=== PATIENT | female | born 1985 | race Caucasian/White ===

== ENCOUNTER → 2017-12-08 14:51 | Outpatient (REF) | payer BC, SELFPAY ==
[2017-12-11 16:04] LABS: Amphetamine/Metha Screen,Urine Negative ng/mL (<1000); Barbiturates Screen,Urine Negative ng/mL (<200); Benzodiazepines Screen,Urine Negative ng/mL (200); Cannabinoid Screen,Urine Negative ng/mL (<50); Cocaine Screen,Urine Negative ng/g (<300); Methadone Screen,Urine Negative ng/mL (<300); Opiate Screen,Urine Negative ng/mL (<300); Phencyclidine Screen,Urine Negative ng/mL (<25)
== END ==
LOC: LAB 14:51
PROVIDERS: Visit Provider Nurse Practitioner Family
DX: R68.89 Other general symptoms and signs (principal)
CPT/HCPCS: 80305

== ENCOUNTER → 2017-12-15 08:39 | Outpatient (CLI) | payer BC, SELFPAY ==
[2017-12-15 09:30] LABS: Basophils % 0.8 % (0.1-2.0); Eosinophils % 0.9 % (0.1-12.0); Hematocrit 44.9 % (37.0-47.0); Hemoglobin 14.6 g/dL (12.2-16.2); Lymphocytes % 35.6 K/mm3 (10-50); Mean Corpuscular HGB Conc 32.5 g/dL (31.8-35.4); Mean Corpuscular Hemoglobin 27.9 pg (27.0-31.2); Mean Corpuscular Volume 86.1 fl (81-99); Mean Platelet Volume 9.3 fl (7.4-10.4); Monocytes # 0.2 K/mm3 (0.1-1.0); Monocytes % 6.4 % (1.7-9.3); Neutrophils # 1.6 K/mm3 (1.8-7.8); Neutrophils % 56.3 % (37.0-80.0); Platelet Count 151 K/mm3 (142-424); Red Blood Count 5.22 M/mm3 (4.20-5.40); Red Cell Distribution Width 13.3 % (11.5-17.5); White Blood Count 2.9 K/mm3 (4.8-10.8)
[2017-12-15 09:48] LABS: Alanine Aminotransferase 48 U/L (12-78); Albumin Level 3.8 gm/dL (3.4-5.0); Albumin/Globulin Ratio 1.2 (1.1-1.8); Alkaline Phosphatase 69 U/L (46-116); Anion Gap 11.2 mEq/L (5-15); Aspartate Amino Transferase 24 U/L (15-37); Bilirubin,Total 0.3 mg/dL (0.2-1.0); Blood Urea Nitrogen 7 mg/dL (7-18); Calcium 8.8 mg/dL (8.5-10.1); Carbon Dioxide 27 mmol/L (21.0-32.0); Chloride 106 mmol/L (98-107); Chol/HDL Ratio 4.5 (1-3.5); Cholesterol 135 mg/dL (140-200); Creatinine,Serum 0.92 mg/dL (0.55-1.02); Estimated Glomerular Filt Rate 71 ml/min (>60); Free T4 (Free Thyroxine) 0.97 ng/dl (0.76-1.46); GFR (African American) 86 ML/MIN (>60); Globulin 3.3 gm/dl (1.3-3.2); Glucose 109 mg/dL (74-106); HDL Cholesterol 30 mg/dL (29-89); LDL Cholesterol 69 mg/dL (0-130); Potassium 4.2 mmoL/L (3.5-5.1); Sodium 140 mmol/L (136-145); Thyroid Stimulating Hormone 1.17 uIU/ml (0.358-3.740); Total Protein,Serum 7.1 gm/dL (6.4-8.2); Triglycerides 180 mg/dL (30-200); VLDL Cholesterol 36 mg/dL (0-40)
== END ==
PROVIDERS: PCP Emergency Medicine; Visit Provider Nurse Practitioner Family
DX: R53.83 Other fatigue (principal)
CPT/HCPCS: 36415; 80053; 80061; 84439; 84443; 85025

== ENCOUNTER → 2017-12-19 09:38 | Outpatient (CLI) | payer BC, SELFPAY ==
[2017-12-20 10:31] LABS: HIV Screen 4th Generation wRfx Non Reactive (Non Reactive)
[2017-12-21 09:39] LABS: Peripheral Smear Review Scanned Result
== END ==
PROVIDERS: Visit Provider Nurse Practitioner Family
DX: D72.819 Decreased white blood cell count, unspecified (principal)
CPT/HCPCS: 36415; 86703; G0432

== ENCOUNTER → 2018-05-11 12:32 | Outpatient (CLI) | payer BC, SELFPAY ==
--- NOTE | 2018-05-11 12:37 | XR_ITS ---
XR knee LT 3V HISTORY: ITS.REASON: knee pain ORDERING PHYSICIAN: Oscar Joshi PATIENT AGE: 32 years COMPARISON: None FINDINGS: No fracture or dislocation. No lytic or blastic change. Normal mineralization. No significant arthritic changes evident. No other significant findings IMPRESSION: Negative Knee
== END ==
PROVIDERS: Visit Provider Nurse Practitioner Family
DX: M25.562 Pain in left knee (principal)
CPT/HCPCS: 73562

== ENCOUNTER → 2018-06-08 10:48 | Outpatient (CLI) | payer BC, SELFPAY ==
--- NOTE | 2018-06-08 10:50 | MR_ITS ---
MR knee LT wo con Ordering Physician: Emiliano Kramer Patient Age: 32 years: Female HISTORY: ITS.REASON: LEFT KNEE PAIN Knee pain and swelling. Feels like something is catching . Anterior knee pain. When on feet for long period of time a developed posterior knee pain . Pain with bending and extending knee TECHNIQUE: Multiplanar multisequence imaging on 1.5 T MR COMPARISON : FINDINGS large volume knee. Large patient. The ACL and PCL are intact. The medial and lateral collateral ligaments appear intact.. Slight undulating patellar tendon appears slightly lax with the knee in full extension but I believe intact. Upper normal signal superiorly the patellar tendon may be exaggerated by magic angle. There is some scant edema overlying the patellar tendon. This is similar to the quadriceps tendon with upper normal signal near its insertion but I believe intact. Patellofemoral joint. Intact but noting slight lateral tilt of patella. The cartilage seems fairly well-maintained at the lateral facet of patella.Perhaps slightly thinned at medial facet of patella There is a small joint effusion. Medial compartment intact. Medial meniscus intact. Cartilage fairly well maintained. Minimal early sharpening is scant early marginal osteophytes margin medial compartment. Lateral compartment. Cartilage seems to be fairly well-maintained here as well with some borderline thinning anteriorly femoral condyle. The lateral meniscus appears intact overall no definitive tear. There is some minimal ill-defined signal at the body of lateral meniscus on coronal views which could reflect some fraying of free margin, but unimpressive. The sagittal images of the meniscus appear intact No osseous abnormalities. No obvious loose body. IMPRESSION: ... Small joint effusion. No prominent findings. . Only subtle lateral position and tilt tilt of patella at patellofemoral very minor significance. Suggestion Mild chondral thinning medial facet of patella Lateral meniscus. No definitive tear with slightly ill-defined free margin on coronal images could reflect some minimal fraying, fibrillation but unimpressive overall. Cruciate and collateral ligaments intact . q
== END ==
PROVIDERS: Family Provider Nurse Practitioner Family; PCP Emergency Medicine; Visit Provider Orthopaedic Surgery Adult Reconstructive Orthopaedic Surgery
DX: M25.562 Pain in left knee (principal)
CPT/HCPCS: 73721

== ENCOUNTER → 2018-08-17 13:14 | Outpatient (CLI) | payer BC, SELFPAY ==
--- NOTE | 2018-08-17 13:15 | US_ITS ---
US transvaginal HISTORY: Dysfunctional uterine bleeding, right-sided pelvic pain ITS.REASON: dub ORDERING PHYSICIAN: Thierno Snyder MD PATIENT AGE: 33 years Comparison: None FINDINGS: The uterus is 10 x 5 x 6 cm with a combined endometrial thickness of 12 mm. The uterus is anteverted. No uterine mass evident. There is an IUD present in the endometrium in the body and fundal area. The right ovary is 3 x 2.6 cm and contains a 1.3 cm cyst. The left ovary is 3 x 2 cm and contains a 2 cm cyst. No cul-de-sac fluid is evident. IMPRESSION: 1. IUD in place with mildly thickened endometrium 2. 2 cm left ovarian cyst, 1.3 cm right ovarian cyst
== END ==
PROVIDERS: PCP Emergency Medicine; Visit Provider Obstetrics & Gynecology
DX: N93.8 Other specified abnormal uterine and vaginal bleeding (principal)
CPT/HCPCS: 76830

== ENCOUNTER → 2018-09-12 15:32 | Outpatient (CLI) | payer BC, SELFPAY ==
--- NOTE | 2018-09-12 15:33 | XR_ITS ---
XR chest 2V HISTORY: Cough, smoker, left-sided rib pain ITS.REASON: Cough, fever, smoker ORDERING PHYSICIAN: WELLINGTON Guerra PATIENT AGE: 33 years COMPARISON: 05/21/2015 FINDINGS: There is mild cardiomegaly without failure. No lobar consolidation or collapse is evident. Right upper lobe nodule is once again noted at 11 mm unchanged consistent with a granuloma. The lungs are clear. No acute bony anomaly. IMPRESSION: No change with no acute finding. Cardiomegaly. No change right upper lobe nodule.
== END ==
PROVIDERS: PCP Physician Assistant; Visit Provider Physician Assistant
DX: R05 Cough (principal)
CPT/HCPCS: 71046

== ENCOUNTER → 2018-09-20 10:26 | Outpatient (CLI) | payer BC, SELFPAY | PROVIDERS: PCP Physician Assistant; Visit Provider Physician Assistant | DX: R05 Cough (principal) | CPT/HCPCS: 94060; 94640 ==

== ENCOUNTER → 2018-09-24 07:48 | Outpatient (CLI) | payer BC, SELFPAY | PROVIDERS: PCP Physician Assistant; Visit Provider Physician Assistant | DX: I51.7 Cardiomegaly (principal) | CPT/HCPCS: 93306 ==

== ENCOUNTER → 2018-11-01 14:12 | Outpatient (CLI) | payer BC, SELFPAY ==
--- NOTE | 2018-11-01 14:14 | US_ITS ---
US transvaginal HISTORY: Follow-up ovarian cyst ITS.REASON: PELVIC PAIN ORDERING PHYSICIAN: Thierno Snyder MD PATIENT AGE: 33 years Comparison: 08/17/2018 FINDINGS: Uterus measures 9 x 4 x 6 cm with combined endometrial thickness of 11 mm. There is an IUD in place with artifact from the IUD. No obvious uterine mass. The left ovary is 3.3 x 2.4 cm and has an unremarkable appearance. The right ovary is 5 x 3 x 4 cm and contains a 3 cm cyst. Previously there was a 13 mm right ovarian cyst and a 2 cm left ovarian cyst. There is a small amount fluid in cul-de-sac. IMPRESSION: 1. IUD in place with endometrial thickness upper limits of normal 2. Mildly enlarged right ovary with a 3 cm right ovarian cyst and a small amount fluid in cul-de-sac
== END ==
PROVIDERS: PCP Emergency Medicine; Visit Provider Obstetrics & Gynecology
DX: R10.2 Pelvic and perineal pain (principal)
CPT/HCPCS: 76830

== ENCOUNTER → 2018-11-15 14:49 | Outpatient (CLI) | payer BC, SELFPAY ==
[2018-11-15 15:16] LABS: Basophils # 0.1 K/mm3 (0-0.2); Basophils % 0.6 % (0.1-2.0); Eosinophils # 0.2 K/mm3 (0.0-0.4); Eosinophils % 1.8 % (0.1-12.0); Hematocrit 39.8 % (37.0-47.0); Hemoglobin 13.1 g/dL (12.2-16.2); Lymphocytes # 2.5 K/mm3 (0.7-4.5); Lymphocytes % 28.5 % (10-50); Mean Corpuscular HGB Conc 32.9 g/dL (31.8-35.4); Mean Corpuscular Hemoglobin 27.7 pg (27.0-31.2); Mean Corpuscular Volume 84.1 fl (81-99); Mean Platelet Volume 8.7 fl (7.4-10.4); Monocytes # 0.4 K/mm3 (0.1-1.0); Monocytes % 4.1 % (1.7-9.3); Neutrophils # 5.7 K/mm3 (1.8-7.8); Platelet Count 201 K/mm3 (142-424); Red Blood Count 4.74 M/mm3 (4.20-5.40); Red Cell Distribution Width 13.6 % (11.5-17.5); White Blood Count 8.8 K/mm3 (4.8-10.8)
[2018-11-15 16:22] LABS: HCG Qualitative, Serum Negative (Negative)
[2018-11-15 17:14] LABS: Alanine Aminotransferase 26 U/L (12-78); Albumin Level 3.7 gm/dL (3.4-5.0); Albumin/Globulin Ratio 1.2 (1.1-1.8); Alkaline Phosphatase 75 U/L (46-116); Anion Gap 15.4 mEq/L (5-15); Aspartate Amino Transferase 10 U/L (15-37); Bilirubin,Total 0.4 mg/dL (0.2-1.0); Blood Urea Nitrogen 12 mg/dL (7-18); Calcium 8.7 mg/dL (8.5-10.1); Carbon Dioxide 26 mmol/L (21.0-32.0); Chloride 104 mmol/L (98-107); Estimated Glomerular Filt Rate 96 ml/min (>60); GFR (African American) 117 ML/MIN (>60); Globulin 3.1 gm/dl (1.3-3.2); Glucose 95 mg/dL (74-106); Potassium 4.4 mmoL/L (3.5-5.1); Sodium 141 mmol/L (136-145); Total Protein,Serum 6.8 gm/dL (6.4-8.2)
[2018-11-19 08:36] LABS: Cancer Antigen (CA) 125 11.3 U/mL (0.0-38.1)
== END ==
PROVIDERS: Visit Provider Obstetrics & Gynecology
DX: Z01.818 Encounter for other preprocedural examination (principal); N93.8 Other specified abnormal uterine and vaginal bleeding; N94.9 Unspecified condition associated with female genital organs and menstrual cycle; R10.2 Pelvic and perineal pain
CPT/HCPCS: 36415; 80053; 84703; 85025; 86316

== ENCOUNTER → 2018-11-16 08:58 | Outpatient (CLI) | payer BC, SELFPAY ==
[2018-11-16 09:02] LABS: Microscopic, Urine URINE MICROSCOPIC (MICROSCOPIC)
[2018-11-16 09:09] LABS: Appearance,Urine SL CLOUDY (Clear); Bilirubin,Urine Negative (Negative); Blood, Urine TRACE-I (Negative); Color,Urine YELLOW (Yellow); Glucose,Urine (UA) Negative (Negative); Ketones,Urine Negative (Negative); Leukocyte Esterase,Urine Negative (Negative); Nitrate,Urine Negative (Negative); PH,Urine 6.5 (5.0-8.5); Protein,Urine Negative (Negative); Specific Gravity, Urine 1.025 (1.005-1.030); Urobilinogen,Urine 0.2 EU/dl (0.2)
[2018-11-16 09:24] LABS: Bacteria,Urine 2+ /lpf; Mucus,Urine 2+ /lpf; RBC,Urine Occasional #/hpf (0-3); WBC,Urine Occasional #/hpf (0-3)
== END ==
PROVIDERS: Visit Provider Obstetrics & Gynecology
DX: Z01.818 Encounter for other preprocedural examination (principal); N93.8 Other specified abnormal uterine and vaginal bleeding; N94.9 Unspecified condition associated with female genital organs and menstrual cycle; R10.2 Pelvic and perineal pain
CPT/HCPCS: 81001; 87086; 87088; 87186

== ENCOUNTER → 2018-12-14 10:55 | Outpatient (CLI) | payer BC, SELFPAY ==
[2018-12-14 11:31] LABS: Basophils # 0.1 K/mm3 (0-0.2); Basophils % 0.8 % (0.1-2.0); Eosinophils # 0.1 K/mm3 (0.0-0.4); Eosinophils % 1.2 % (0.1-12.0); Hematocrit 39.3 % (37.0-47.0); Lymphocytes # 1.8 K/mm3 (0.7-4.5); Lymphocytes % 28.6 % (10-50); Mean Corpuscular HGB Conc 33.2 g/dL (31.8-35.4); Mean Corpuscular Hemoglobin 27.8 pg (27.0-31.2); Mean Corpuscular Volume 83.8 fl (81-99); Monocytes # 0.3 K/mm3 (0.1-1.0); Monocytes % 4.3 % (1.7-9.3); Neutrophils # 4.2 K/mm3 (1.8-7.8); Neutrophils % 65.1 % (37.0-80.0); Platelet Count 183 K/mm3 (142-424); Red Blood Count 4.69 M/mm3 (4.20-5.40); Red Cell Distribution Width 13.4 % (11.5-17.5); White Blood Count 6.4 K/mm3 (4.8-10.8)
[2018-12-14 12:43] LABS: Alanine Aminotransferase 29 U/L (12-78); Albumin Level 3.7 gm/dL (3.4-5.0); Albumin/Globulin Ratio 1.2 (1.1-1.8); Alkaline Phosphatase 71 U/L (46-116); Anion Gap 13.2 mEq/L (5-15); Aspartate Amino Transferase 14 U/L (15-37); Bilirubin,Total 0.6 mg/dL (0.2-1.0); Blood Urea Nitrogen 9 mg/dL (7-18); Carbon Dioxide 27 mmol/L (21.0-32.0); Chloride 105 mmol/L (98-107); Chol/HDL Ratio 3.9 (1-3.5); Cholesterol 166 mg/dL (140-200); Creatinine,Serum 0.68 mg/dL (0.55-1.02); Estimated Glomerular Filt Rate 100 ml/min (>60); Ferritin 31 ng/mL (8-388); GFR (African American) 121 ML/MIN (>60); Glucose 93 mg/dL (74-106); HDL Cholesterol 43 mg/dL (29-89); Iron 63 ug/dl (28-170); LDL Cholesterol 103 mg/dL (0-130); Magnesium 2.3 mg/dL (1.4-2.2); Phosphorous 3.1 mg/dL (2.4-4.9); Potassium 4.2 mmoL/L (3.5-5.1); Sodium 141 mmol/L (136-145); Thyroid Stimulating Hormone 1.07 uIU/ml (0.358-3.740); Total Protein,Serum 6.7 gm/dL (6.4-8.2); Triglycerides 98 mg/dL (30-200); VLDL Cholesterol 20 mg/dL (0-40)
[2018-12-14 12:55] LABS: Hemoglobin A1C 5.3 % (0.0-7.0)
[2018-12-15 10:16] LABS: Folate 15.9 ng/mL (>3.0)
[2018-12-15 10:17] LABS: Prealbumin 21 mg/dL (14-35); Vitamin D 25 Hydroxy 15.3 ng/mL (30.0-100.0)
[2018-12-17 07:59] LABS: Parathyroid Hormone Intact 58 pg/mL (15-65)
[2018-12-18 03:11] LABS: Vitamin A 40.8 ug/dL (18.9-57.3); Vitamin B1 98.8 nmol/L (66.5-200.0)
[2018-12-18 03:12] LABS: Vitamin E Alpha Tocopherol 9.1 mg/L (5.9-19.4); Vitamin E Gamma Tocopherol 2.7 mg/L (0.7-4.9)
[2018-12-18 15:24] LABS: Methylmalonic Acid 142 nmol/L (0-378)
[2018-12-18 16:10] LABS: Cotinine None Detected (.); Nicotine None Detected (.)
== END ==
PROVIDERS: Visit Provider Physician Assistant
DX: I10 Essential (primary) hypertension (principal); K75.81 Nonalcoholic steatohepatitis (NASH); E66.01 Morbid (severe) obesity due to excess calories
CPT/HCPCS: 36415; 80053; 80061; 80323; 82131; 82652; 82728; 82746; 83036; 83540; 83735; 83970; 84100; 84134; 84425; 84443; 84446; 84590; 85025; G0480

== ENCOUNTER → 2019-12-13 10:31 | Outpatient (CLI) | payer BC, SELFPAY ==
[2019-12-14 20:44] LABS: Vitamin B12 578 pg/mL (232-1245)
== END ==
PROVIDERS: Visit Provider Physician Assistant
DX: R53.83 Other fatigue (principal)
CPT/HCPCS: 36415; 82607

== ENCOUNTER 2021-05-15 17:21 | Emergency (ER) | payer BC, SELFPAY ==
[2021-05-15 17:23] VITALS: BP 122/74; PULSE 88; RESP 20; TEMP 38; O2SAT 99; BMI 36.6
--- NOTE | 2021-05-15 18:35 | HMH.EDUTC ---
[facility] Disposition Clinical Impression: Bronchitis Sinusitis Qualifiers: Sinusitis location: maxillary Chronicity: acute Recurrence: non-recurrent Qualified Code(s): J01.00 - Acute maxillary sinusitis, unspecified Disposition: Home, Self-Care Condition on Discharge: Good Instructions: DI for Sinusitis Additional Instructions: You have been tested for COVID19. Please isolate yourself as if you are positive until test results received. Prescriptions: Albuterol Sulfate [Albuterol Sulfate Hfa] 2 puffs IH Q4HP PRN 30 Days #1 hfa.aer.ad PRN Reason: Shortness Of Breath Transmission Status: [facility] predniSONE [Prednisone 20mg Tab] 20 mg PO BID 5 Days #10 tab Transmission Status: Pending to [facility] Azithromycin [Z-Oh 250mg Tab] 250 mg PO DIRECTED #6 tab Transmission Status: Pending to [facility] Referrals: Adam nAtunez MD [Primary Care Provider] - Time of Disposition: 19:12 Medical Decision Making - Jorge Luis Inquiry Pt receiving controlled substance: No Vital Signs: 05/15/21 17:23 Temperature 100.4 F H Temperature Source Oral Pulse Rate [Left Radial] 88 Respiratory Rate 20 Blood Pressure [Right Arm] 122/74 Blood Pressure Mean [Right Arm] 90 Blood Pressure Source [Right Arm] Automatic Cuff Blood Pressure Position [Right Arm] Sitting 02 Sat by Pulse Oximetry 99 Oxygen Delivery Method Room Air - Lab Data Lab Results 05/15/21 18:36: Strep Scn Rapid Clinic Negative Orders (Tests/Meds): ORDERS Category Date Time Status Chest XR 2 view (NOT portable) [XR chest 2V] Stat Exams 05/15/21 18:41 Taken Covid-19 Nasal PCR ([facility]) Routine Lab 05/15/21 18:30 Received Strep Screen Confirmation Stat Micro 05/15/21 18:36 [facility] - General Stated complaint: Cough,SOBmCongestion Time Seen by Provider: 05/15/21 18:35 - History of Present Illness Provider Complaint: Nasal congestion, sore throat, runny nose, cough, shortness of breath, low grade fever X 4 days. Body aches, chills. No vomiting or diarrhea. Onset (ago): day(s) (4) Location: chest Relieving factors: none Exacerbating factors: none Associated symptoms: cough, fever/chills, malaise Treatments prior to arrival: none - Related Data Home Medications Medication Instructions Recorded Confirmed linaclotide 72 mcg capsule 72 mcg PO DAILY cap 05/11/18 11/15/19 omeprazole 20 mg capsule,delayed 40 mg PO DAILY cap 05/11/18 11/15/19 release copper 380 square mm intrauterine 1 % INTRAUTERI DIRECTED each 07/31/18 11/15/19 device Fluticasone/Vilanterol [Breo 1 inh INHALATION Q24H 11/19/18 11/15/19 Ellipta] phentermine 37.5 mg tablet 37.5 mg PO DAILY 05/25/20 05/25/20 Previous Rx's Medication Instructions Recorded benzoyl peroxide 2.5 % topical 1 applic TOPICAL DAILY PRN #21 g 11/16/18 cream cholecalciferol (vitamin D3) 125 5,000 unit PO DAILY #30 cap 12/18/18 mcg (5,000 unit) capsule ergocalciferol (vitamin D2) 1,250 50,000 unit PO QWEEK #4 cap 12/18/18 mcg (50,000 unit) capsule cetirizine 10 mg tablet 10 mg PO DAILY #30 tab 06/20/19 triamcinolone acetonide 0.1 % 1 applic TOPICAL QID #30 g 08/06/19 topical cream valacyclovir 1 gram tablet 1,000 mg PO TID #21 tab 08/06/19 hydroxyzine pamoate 25 mg capsule 25 mg PO TID PRN #90 cap 10/21/20 buspirone 5 mg tablet 5 mg PO BID PRN #180 tab 05/14/21 trazodone 50 mg tablet 50 mg PO QHS PRN #90 tab 05/14/21 venlafaxine 150 mg 150 mg PO DAILY #90 cap 05/14/21 capsule,extended release 24 hr Albuterol Sulfate [Albuterol 2 puffs IH Q4HP PRN 30 Days #1 05/15/21 Sulfate Hfa] hfa.aer.ad Azithromycin [Z-Oh 250mg Tab] 250 mg PO DIRECTED #6 tab 05/15/21 predniSONE [Prednisone 20mg 20 mg PO BID 5 Days #10 tab 05/15/21 Tab] Allergies Allergy/AdvReac Type Severity Reaction Status Date / Time No Known Allergies Allergy Verified 05/14/21 10:25 [facility] History - Hepatitis A Screen Atte
[2021-05-15 18:38] LABS: UTC Strep Screen (Rapid) Negative (Negative)
--- NOTE | 2021-05-15 18:41 | XR_ITS ---
PROCEDURE INFORMATION: Exam: XR Chest Exam date and time: 05/15/2021 6:41 PM Age: 35 years old Clinical indication: Cough; Additional info: Cough/congestion TECHNIQUE: Imaging protocol: XR of the chest. Views: 2 views. COMPARISON: CR CXR2V XR chest 2V 09/12/2018 3:39 PM FINDINGS: Lungs: Calcified granuloma within the periphery of the right upper lobe. Pleural spaces: Unremarkable. No pleural effusion. No pneumothorax. Heart/Mediastinum: Normal. Bones/joints: No acute abnormality. IMPRESSION: No acute cardiopulmonary abnormality.
[2021-05-15 19:24] VITALS: BP 122/74; PULSE 88; RESP 20; TEMP 38; O2SAT 99
== END 2021-05-15 19:25 | disposition home or self-care (01) ==
PROVIDERS: Emergency Provider Physician Assistant; PCP Emergency Medicine
DX: J20.9 Acute bronchitis, unspecified (principal); J01.00 Acute maxillary sinusitis, unspecified; I10 Essential (primary) hypertension; K21.9 Gastro-esophageal reflux disease without esophagitis; Z87.891 Personal history of nicotine dependence
CPT/HCPCS: 71046; 87880; 99202; G0463; U0003

== ENCOUNTER 2021-09-20 16:37 | Emergency (ER) | payer BC, SELFPAY ==
[2021-09-20 17:40] VITALS: BP 0/0; PULSE 0; RESP 0; TEMP -17.7; TEMP 0
== END 2021-09-20 17:41 | disposition left against medical advice (07) ==
LOC: UTC 16:41
PROVIDERS: Emergency Provider Nurse Practitioner Family; PCP Emergency Medicine
DX: Z53.21 Procedure and treatment not carried out due to patient leaving prior to being seen by health care provider (principal)

== ENCOUNTER → 2021-09-20 17:25 | Outpatient (CLI) | payer BC, SELFPAY | PROVIDERS: PCP Emergency Medicine; Visit Provider Nurse Practitioner | DX: U07.1 COVID-19 (principal) | CPT/HCPCS: C9803; U0003; U0005 ==

== ENCOUNTER → 2021-09-27 10:10 | Outpatient (CLI) | payer BC, SELFPAY | PROVIDERS: PCP Emergency Medicine; Visit Provider Emergency Medicine | DX: U07.1 COVID-19 (principal); Z23 Encounter for immunization | CPT/HCPCS: 96365 ==

== ENCOUNTER 2022-01-04 17:21 | Emergency (ER) | payer BC, SELFPAY ==
[2022-01-04 17:22] VITALS: BP 124/80; PULSE 67; RESP 17; TEMP 36.8; O2SAT 100; BMI 38.2
--- NOTE | 2022-01-04 17:42 | HMH.EDGENADL ---
ED Disposition Clinical Impression: Tension headache Disposition: Home, Self-Care Condition on Discharge: Good Instructions: Tension Headache Additional Instructions: follow up pcp Referrals: Adam Antunez MD [Primary Care Provider] - - Critical Care Critical Care Time: No Attestation: On , the high probability of a clinically significant, sudden or life threatening deterioration of the following system(s) required my full and direct attention, intervention and personal management. The time I documented below is in addition to time spent performing reported procedures but includes the following listed in this critical care notation. Medical Decision Making - Medical Records Medical records reviewed: Yes: I reviewed the patient's medical records. - Jorge Luis Inquiry Pt receiving controlled substance: No Vital Signs: 01/04/22 17:22 01/04/22 18:40 Temperature 98.2 F 98.2 F Temperature Source Oral Oral Pulse Rate 73 Pulse Rate [Right] 67 Respiratory Rate 17 18 Blood Pressure 115/70 Blood Pressure [Right Arm] 124/80 Blood Pressure Mean [Right Arm] 94 Blood Pressure Source Automatic Cuff Blood Pressure Source [Right Arm] Automatic Cuff Blood Pressure Position Supine Blood Pressure Position [Right Arm] Supine 02 Sat by Pulse Oximetry 100 99 Oxygen Delivery Method Room Air Room Air - Lab Data Lab Results 01/04/22 18:05: WBC 7.5, RBC 4.38, Hgb 11.6 L, Hct 35.3 L, MCV 80.6 L, MCH 26.5 L, MCHC 32.9, RDW 15.6, Plt Count 216, MPV 12.6 H, Neut % (Auto) 66.5, Lymph % (Auto) 27.0, [place] % (Auto) 4.1, Eos % (Auto) 1.1, Baso % (Auto) 1.3, Neut # (Auto) 5.0, Lymph # (Auto) 2.0, [place] # (Auto) 0.3, Eos # (Auto) 0.1, Baso # (Auto) 0.1 01/04/22 18:05: Sodium 135 L, Potassium 4.3, Chloride 108 H, Carbon Dioxide 25, Anion Gap 6.3, BUN 16, Creatinine 0.50 L, Estimated Creat Clear 256, Estimated GFR 140, Est GFR ( Amer) 169, Glucose 100, Calcium 8.3 L, Total Bilirubin 0.4, AST 32, ALT 25, Alkaline Phosphatase 65, Total Protein 6.1 L, Albumin 3.8, Globulin 2.3, Albumin/Globulin Ratio 1.7 Result diagrams: 01/04/22 18:05 01/04/22 18:05 Orders (Tests/Meds): ED MEDICATIONS Discontinued Medications Generic Name Dose Route Start Last Admin Trade Name Hans PRN Reason Stop Dose Admin Acetaminophen 1,000 mg 01/04/22 17:39 Acetaminophen 500mg Tab PO 01/04/22 17:40 ONCE ONE General Adult HPI - General Stated complaint: dizzy light-headed, GREGORY Time Seen by Provider: 01/04/22 17:42 - History of Present Illness HPI narrative: frontal/temporal gregory behind eyes few weeks, intermittent asking about iron levels Onset (ago): week(s) Location: head, face Radiation: non-radiation Severity: moderate Relieving factors: none Exacerbating factors: none Associated symptoms: denies other symptoms - Related Data Home Medications Medication Instructions Recorded Confirmed linaclotide 72 mcg capsule 72 mcg PO DAILY cap 05/11/18 11/08/21 modafinil 200 mg tablet 200 mg PO DAILY 06/01/21 11/08/21 dextroamphetamine-amphetamine ER 15 mg PO DAILY cap 11/08/21 11/08/21 15 mg 24hr capsule,extend release pantoprazole 40 mg tablet,delayed 40 mg PO DAILY tab 11/08/21 11/08/21 release spironolactone 50 mg tablet 50 mg PO DAILY tab 11/08/21 11/08/21 Previous Rx's Medication Instructions Recorded benzoyl peroxide 2.5 % topical 1 applic TOPICAL DAILY PRN #21 g 11/16/18 cream cetirizine 10 mg tablet 10 mg PO DAILY #30 tab 06/20/19 triamcinolone acetonide 0.1 % 1 applic TOPICAL QID #30 g 08/06/19 topical cream Albuterol Sulfate [Albuterol 2 puffs IH Q4HP PRN 30 Days #1 05/15/21 Sulfate Hfa] hfa.aer.ad acyclovir 800 mg tablet 800 mg PO QID 14 Days #56 tab 06/01/21 metformin 500 mg tablet 500 mg PO BID #60 tab 06/01/21 methylprednisolone 4 mg tablets in See Rx Instructions PO PER PKG DIR 06/01/21 a dose pack #21 tab buspirone 5 mg tablet 5 mg PO BID PRN #180 tab 11/08/21 venlafax
[2022-01-04 18:14] LABS: Basophils # 0.1 K/mm3 (0-0.2); Basophils % 1.3 % (0.1-2.0); Eosinophils # 0.1 K/mm3 (0.0-0.4); Eosinophils % 1.1 % (0.1-12.0); Hematocrit 35.3 % (37.0-47.0); Hemoglobin 11.6 g/dL (12.2-16.2); Mean Corpuscular HGB Conc 32.9 g/dL (31.8-35.4); Mean Corpuscular Hemoglobin 26.5 pg (27.0-31.2); Mean Corpuscular Volume 80.6 fl (81-99); Mean Platelet Volume 12.6 fl (7.4-10.4); Monocytes # 0.3 K/mm3 (0.1-1.0); Monocytes % 4.1 % (1.7-9.3); Neutrophils % 66.5 % (37.0-80.0); Platelet Count 216 K/mm3 (142-424); Red Blood Count 4.38 M/mm3 (4.20-5.40); Red Cell Distribution Width 15.6 % (11.5-17.5); White Blood Count 7.5 K/mm3 (4.8-10.8)
[2022-01-04 18:23] LABS: Alanine Aminotransferase 25 U/L (12-78); Albumin Level 3.8 g/dl (3.5-5.0); Albumin/Globulin Ratio 1.7 (1.1-1.8); Alkaline Phosphatase 65 U/L (38-126); Anion Gap 6.3 mEq/L (5-15); Aspartate Amino Transferase 32 U/L (14-36); Bilirubin,Total 0.4 mg/dl (0.2-1.3); Blood Urea Nitrogen 16 mg/dl (7-17); Calcium 8.3 mg/dl (8.4-10.2); Carbon Dioxide 25 mmol/L (22.0-30.0); Chloride 108 mmol/L (98-107); Creatinine Clearance Estimated 256 mL/min (50-200); Estimated Glomerular Filt Rate 140 ml/min (>60); GFR (African American) 169 ML/MIN (>60); Globulin 2.3 g/dL (1.3-3.2); Glucose 100 mg/dl (74-100); Potassium 4.3 mmoL/L (3.5-5.1); Sodium 135 mmol/L (136-145); Total Protein,Serum 6.1 g/dl (6.3-8.2)
[2022-01-04 18:40] VITALS: BP 115/70; PULSE 73; RESP 18; TEMP 36.8; O2SAT 99
[2022-01-04 19:20] VITALS: BP 114/70; PULSE 75; RESP 18; TEMP 36.7; O2SAT 99
== END 2022-01-04 19:23 | disposition home or self-care (01) ==
PROVIDERS: Emergency Provider Emergency Medicine; PCP Emergency Medicine
DX: G44.209 Tension-type headache, unspecified, not intractable (principal); K21.9 Gastro-esophageal reflux disease without esophagitis; I10 Essential (primary) hypertension; Z87.891 Personal history of nicotine dependence
CPT/HCPCS: 80053; 85025; 99283

== ENCOUNTER → 2022-05-24 09:32 | Outpatient (CLI) | payer BC, SELFPAY ==
[2022-05-24 09:59] LABS: Basophils # 0.1 K/mm3 (0-0.2); Basophils % 1.2 % (0.1-2.0); Eosinophils # 0.2 K/mm3 (0.0-0.4); Eosinophils % 2.5 % (0.1-12.0); Hematocrit 40.6 % (37.0-47.0); Hemoglobin 11.9 g/dL (12.2-16.2); Lymphocytes # 1.4 K/mm3 (0.7-4.5); Lymphocytes % 22.4 % (10-50); Mean Corpuscular HGB Conc 29.4 g/dL (31.8-35.4); Mean Corpuscular Hemoglobin 24.9 pg (27.0-31.2); Mean Corpuscular Volume 84.6 fl (81-99); Mean Platelet Volume 10.5 fl (7.4-10.4); Monocytes # 0.4 K/mm3 (0.1-1.0); Monocytes % 6.4 % (1.7-9.3); Neutrophils # 4.1 K/mm3 (1.8-7.8); Neutrophils % 67.6 % (37.0-80.0); Platelet Count 224 K/mm3 (142-424); Red Blood Count 4.79 M/mm3 (4.20-5.40); Red Cell Distribution Width 15.2 % (11.5-17.5); White Blood Count 6.1 K/mm3 (4.8-10.8)
[2022-05-24 10:33] LABS: Chloride 108 mmol/L (98-107); Potassium 4.1 mmoL/L (3.5-5.1); Sodium 141 mmol/L (136-145)
[2022-05-24 10:35] LABS: Alanine Aminotransferase 20 U/L (12-78); Aspartate Amino Transferase 29 U/L (14-36); Blood Urea Nitrogen 12 mg/dl (7-17); Estimated Glomerular Filt Rate 113 ml/min (>60); GFR (African American) 137 ML/MIN (>60)
[2022-05-24 10:36] LABS: Albumin Level 4.3 g/dl (3.5-5.0); Albumin/Globulin Ratio 1.5 (1.1-1.8); Alkaline Phosphatase 95 U/L (38-126); Anion Gap 10.1 mEq/L (5-15); Bilirubin,Total 0.2 mg/dl (0.2-1.3); Calcium 9.4 mg/dl (8.4-10.2); Carbon Dioxide 27 mmol/L (22.0-30.0); Globulin 2.8 g/dL (1.3-3.2); Glucose 104 mg/dl (74-100); Iron 48 ug/dL (37-170); Total Protein,Serum 7.1 g/dl (6.3-8.2)
[2022-05-24 10:46] LABS: Total Iron Binding Capacity 416 ug/dL (265-497)
[2022-05-24 10:51] LABS: Hemoglobin A1C 5.2 % (4.0-6.0)
[2022-05-24 10:53] LABS: Triiodothryronine (T3) Uptake 29 % (23.5-40.5)
[2022-05-24 10:54] LABS: Free Thyroxine Index 2.3 ug/dL (5.93-13.13); T4 (Thyroxine) 7.8 ug/dl (5.53-11.0)
[2022-05-24 11:07] LABS: Thyroid Stimulating Hormone 0.98 uIU/mL (0.465-4.68)
[2022-05-24 11:39] LABS: Vitamin B12 378 pg/mL (239-931)
[2022-05-30 10:12] LABS: 1,25 Dihydroxy Vitamin D 72 pg/mL (.); 1,25-Dihydroxy, Vitamin D-2 <10 pg/mL (.); 1,25-Dihydroxy, Vitamin D-3 72 pg/mL (.)
== END ==
PROVIDERS: PCP Emergency Medicine; Visit Provider Nurse Practitioner Psychiatric/Mental Health
DX: Z00.00 Encounter for general adult medical examination without abnormal findings (principal); Z79.899 Other long term (current) drug therapy; E67.3 Hypervitaminosis D
CPT/HCPCS: 36415; 80053; 82607; 82652; 83036; 83540; 83550; 84436; 84443; 84479; 85025

== ENCOUNTER → 2022-10-20 09:50 | Outpatient (CLI) | payer BC, SELFPAY ==
[2022-10-20 15:22] LABS: Amphetamine/Metha Screen,Urine Negative ng/ml (<1000)
[2022-10-20 15:25] LABS: Barbiturates Screen,Urine Negative ng/ml (<200); Benzodiazepines Screen,Urine Negative ng/ml (<200)
[2022-10-20 15:26] LABS: Cannabinoid Screen,Urine Negative ng/ml (<50)
[2022-10-20 15:27] LABS: Cocaine Screen,Urine Negative ng/ml (<300); Methadone Screen,Urine Negative ng/ml (<300)
[2022-10-20 15:28] LABS: Opiate Screen,Urine Negative ng/ml (<300)
[2022-10-20 15:29] LABS: Phencyclidine Screen,Urine Negative ng/ml (<25)
== END ==
PROVIDERS: PCP Emergency Medicine; Visit Provider Emergency Medicine
DX: Z79.899 Other long term (current) drug therapy (principal)
CPT/HCPCS: 80305

== ENCOUNTER → 2023-01-13 13:55 | Outpatient (CLI) | payer BC, SELFPAY ==
[2023-01-13 14:47] LABS: Alanine Aminotransferase 20 U/L (12-78); Albumin Level 4.2 g/dl (3.5-5.0); Albumin/Globulin Ratio 1.8 (1.1-1.8); Alkaline Phosphatase 76 U/L (38-126); Anion Gap 8.1 mEq/L (5-15); Aspartate Amino Transferase 27 U/L (14-36); Bilirubin,Total 0.7 mg/dl (0.2-1.3); Blood Urea Nitrogen 13 mg/dl (7-17); Calcium 8.9 mg/dl (8.4-10.2); Carbon Dioxide 26 mmol/L (22.0-30.0); Chloride 106 mmol/L (98-107); Chol/HDL Ratio 3.8 (1-3.5); Cholesterol 195 mg/dl (140-200); Estimated Glomerular Filt Rate 94 ml/min (>60); GFR (African American) 114 ML/MIN (>60); Globulin 2.4 g/dL (1.3-3.2); Glucose 104 mg/dl (74-100); HDL Cholesterol 51 mg/dl (40-60); Potassium 4.1 mmoL/L (3.5-5.1); Sodium 136 mmol/L (136-145); Total Protein,Serum 6.6 g/dl (6.3-8.2); Triglycerides 133 mg/dl (30-150); VLDL Cholesterol 27 mg/dL (0-40)
[2023-01-13 14:57] LABS: 25-OH Vitamin D, Total 39.5 ng/mL (30-100)
[2023-01-13 15:01] LABS: Free T4 (Free Thyroxine) 1.01 ng/dl (0.78-2.19)
[2023-01-13 15:05] LABS: Basophils # 0.1 K/mm3 (0-0.2); Basophils % 0.9 % (0.1-2.0); Eosinophils # 0.1 K/mm3 (0.0-0.4); Eosinophils % 0.8 % (0.1-12.0); Hematocrit 41.4 % (37.0-47.0); Hemoglobin 12.2 g/dL (12.2-16.2); Lymphocytes # 1.6 K/mm3 (0.7-4.5); Lymphocytes % 25.9 % (10-50); Mean Corpuscular HGB Conc 29.5 g/dL (31.8-35.4); Mean Corpuscular Hemoglobin 24.3 pg (27.0-31.2); Mean Corpuscular Volume 82.2 fl (81-99); Mean Platelet Volume 10.5 fl (7.4-10.4); Monocytes # 0.3 K/mm3 (0.1-1.0); Monocytes % 5.3 % (1.7-9.3); Neutrophils # 4.1 K/mm3 (1.8-7.8); Neutrophils % 67.2 % (37.0-80.0); Platelet Count 188 K/mm3 (142-424); Red Blood Count 5.04 M/mm3 (4.20-5.40); Red Cell Distribution Width 14.9 % (11.5-17.5); White Blood Count 6.1 K/mm3 (4.8-10.8)
[2023-01-13 15:06] LABS: Direct LDL Cholesterol 111.94 mg/dL (100-129)
[2023-01-13 15:15] LABS: Thyroid Stimulating Hormone 1.08 uIU/mL (0.465-4.68)
== END ==
PROVIDERS: PCP Emergency Medicine; Visit Provider Emergency Medicine
DX: R53.83 Other fatigue (principal); K59.00 Constipation, unspecified; E03.9 Hypothyroidism, unspecified; E66.9 Obesity, unspecified; Z68.41 Body mass index [BMI] 40.0-44.9, adult
CPT/HCPCS: 80053; 80061; 82306; 84439; 84443; 85025

== ENCOUNTER → 2023-08-03 22:45 | Outpatient (CLI) | payer BC, SELFPAY ==
[2023-08-03 18:45] LABS: Coronavirus 19, PCR Not Detected (NotDetected); Influenza A, PCR Not Detected (NotDetected); Influenza B, PCR Not Detected (NotDetected)
== END ==
PROVIDERS: PCP Internal Medicine; Visit Provider Internal Medicine
DX: R06.02 Shortness of breath (principal); R05.1 Acute cough
CPT/HCPCS: 87636

== ENCOUNTER → 2023-09-04 10:07 | Outpatient (CLI) | payer BC, SELFPAY | LOC: LAB.DROPOF 09-05 10:08 | PROVIDERS: PCP Internal Medicine; Visit Provider Internal Medicine | DX: R82.90 Unspecified abnormal findings in urine (principal); B96.29 Other Escherichia coli [E. coli] as the cause of diseases classified elsewhere | CPT/HCPCS: 87086 ==

== ENCOUNTER 2023-10-28 12:55 | Emergency (ER) | payer BC, SELFPAY ==
[2023-10-28] VITALS (8 sets, daily range): BP systolic 92–148; BP diastolic 56–84; PULSE 62–88; RESP 16–18; TEMP 36.4–36.6; O2SAT 97–100; BMI 38.2
--- NOTE | 2023-10-28 12:55 | ECG_ITS ---
APPROVED REPORT Exam: Resting ECG HR:80 bpm ECG Measurements Heart Rate 80 AXES IN 146 P 50 QRSd 101 QRS 58 QT 351 T 57 QTc 386 Conclusion SINUS RHYTHM NORMAL ECG UNCONFIRMED REPORT Electronically signed by : Dimitrios Dempsey MD 10/30/2023 17:32:28
--- NOTE | 2023-10-28 13:47 | XR_ITS ---
PROCEDURE INFORMATION: Exam: XR Chest Exam date and time: 10/28/2023 1:58 PM Age: 38 years old Clinical indication: Pain; Radiating; Additional info: Chest pain radiating to back. Smoker TECHNIQUE: Imaging protocol: Radiologic exam of the chest. Views: 2 views. COMPARISON: CR XR CHEST 2V 05/15/2021 6:37 PM FINDINGS: Lungs: No evidence of pneumonia or interstitial edema. Unchanged right upper lobe granuloma. Pleural spaces: Unremarkable. No pleural effusion. No pneumothorax. Heart/Mediastinum: Unremarkable. No cardiomegaly. Bones/joints: Unremarkable. IMPRESSION: No evidence of pneumonia or interstitial edema.
--- NOTE | 2023-10-28 13:49 | ED_ITS ---
Discharge Plan Disposition Patient Disposition: Home, Self-Care Condition: Good Prescriptions Prescriptions: No Action sulfamethoxazole-trimethoprim [Bactrim DS] 800-160 mg tablet 1 tab PO BID Qty: 20 0RF Rx Instructions: take one tablet BID x10 days lisdexamfetamine [Vyvanse] 60 mg capsule 60 mg PO DAILY Qty: 30 0RF Linzess 145 mcg capsule See Rx Instructions .ROUTE .COMPLEX Qty: 90 3RF Dose Instruction: TAKE 1 CAPSULE BY MOUTH ONCE DAILY Rx Instructions: TAKE 1 CAPSULE BY MOUTH ONCE DAILY pantoprazole 40 mg tablet,delayed release (DR/EC) See Rx Instructions .ROUTE .COMPLEX Qty: 90 3RF Dose Instruction: TAKE 1 TABLET BY MOUTH ONCE DAILY Rx Instructions: TAKE 1 TABLET BY MOUTH ONCE DAILY Referrals Follow up/Referrals: Emperatriz Tamayo PA [Primary Care Provider] - See instructions Activity Restrictions/Add. Instructions Additional Instructions/Restrictions: Your workup while in the emergency department has been reassuring. After shared decision making you have elected not to get a second heart enzyme level given that your symptoms have been ongoing for several hours, it is reassuring that your symptoms have improved at this time, this being said, as mentioned, the safest thing is to get a second heart enzyme level, but it is reasonable d ecision to be discharged at this time. That being said, please keep in mind that we have not entirely ruled out any ongoing heart issue although things are looking reassuring at this time. Please do not hesitate to return with any new or worsening symptoms. Clinical Impressions Clinical Impression: Acute chest pain Discharge ED Provider: Avery Layne Adult [facility] General Chief complaint: Chest Pain Stated complaint: chest pain Time Seen by Provider: 10/28/23 12:58 Mode of Arrival: Ambulatory Source of Information: Patient Limitations: No Limitations Description of Symptoms (Recalled from ER Triage Doc. by RN): Patient reports midsternal chest pain that radiates to her back. States it started around 130- 2am this morning. States she currently has shingles on her back and has been fighting heartburn for 3 days. History of Present Illness HPI narrative: Patient is a 38-year-old female with history of tobacco use disorder, reported history of COPD, denies any surgical history to me, daily medications of PPI and Vyvanse, presents with chief complaint of substernal chest pain that radiates to her back. This reportedly started approximately 24 hours ago but worsened this morning. She states it woke her up from sleep. It is described as pressure. She states it is nothing like her history of GERD, clarifies upon questioning that it is more severe. She has not been able to identify any exacerbating or alleviating factors. She denies any previous therapies. Regarding nursing note mentioning shingles, does not comment to me and denies any cutaneous symptoms or focal pain in her back. She denies any other past medical history, denies any surgical history, denies any abdominal pain, this pain is nonpleuritic, nonexertional, it is worsened with leaning back. She denies any coronary history. Regarding history of COPD, patient states that she was clinically diagnosed with COPD once during ED visit, she states she subsequently had pulmonary function tests and she was told that she had the lungs of a 20-year-old. She does smoke daily. Denies any dysuria, frequency, flank pain, abdominal pain, right upper quadrant pain. She states she has been compliant with PPI therapy. I inquire how she is taking her PPI she states she usually takes it on an empty stomach. No recent travel, no leg pain or leg swelling. No hemoptysis. No other productive cough. No dyspnea, no sick contacts. Related Data Previous Rx's Medication Instructions Recorded sulfamethoxazole 800 1 tab PO BID #20 tabs 09/22/23 mg-trimethoprim 160 mg tablet (Bactrim DS) linaclotide 145 mcg capsule See Rx Instructions .Route 10/05/23 (Linzess) .COMPLEX #90 caps lisdexamfetamine 60 mg capsule 60 mg PO DAILY #30 caps 10/05/23 (Vyvanse) pantoprazole 40 mg tablet,delayed See Rx Instructions .Route 10/05/23 release .COMPLEX #90 tabs Allergies Allergy/AdvReac Type Severity Reaction Status Date / Time No Known Allergies Allergy Verified 09/04/23 11:02 [facility] Disclaimer: The information contained in this section may have been updated after the patient was seen, as this information can be updated by other users. Medical History Attention deficit disorder (ADD) in adult Generalized anxiety disorder Major depressive disorder Social History (Reviewed 09/04/23 @ 11:03 by NORMA Mccarthy Smoking Status: Current every day smoker tobacco type: cigarettes packs per day: 1 second hand exposure: No alcohol intake: never substance use type: denies use current occupational status: employed Travel in the last 8 weeks: None household members: significant other housing: house number of children: 1 current occupation: self employed caffeine: Yes ROS Obtained: Yes Systems reviewed as appropriate & no additional complaints except as documented As per HPI Physical Exam General General appearance: alert and in no apparent distress Head Head exam: atraumatic and normocephalic Eye Eye exam: Present normal appearance Neck Neck exam: Present normal inspection Chest Chest inspection: Present normal inspection and symmetric chest wall rise Respiratory Respiratory exam: Present normal lung sounds bilaterally; Absent respiratory distress or wheezes Cardiovascular Cardiovascular exam: Present regular rate and normal rhythm Abdominal Exam Abdominal exam: Present soft; Absent distention or tenderness Neurological Exam Neurological exam: Present alert and oriented X3 Psychiatric Psychiatric exam: Present normal affect and normal mood Skin Skin exam: Present warm and dry Medical Decision Making Medical Records Medical records reviewed: Yes I reviewed the patient's medical records. Jorge Luis Inquiry Pt receiving controlled substance: No Vital Signs: 10/28/23 12:54 10/28/23 13:00 10/28/23 13:30 Temperature 97.6 F Temperature Source Oral Pulse Rate 79 62 Pulse Rate [Radial] 85 Respiratory Rate 16 Blood Pressure 131/74 118/69 Blood Pressure [Right Arm] 148/84 H Blood Pressure Mean [Right Arm] 105 Blood Pressure Source [Right Arm] Automatic Cuff Blood Pressure Position [Right Arm] Sitting 02 Sat by Pulse Oximetry 100 100 100 Oxygen Delivery Method Room Air 10/28/23 14:00 10/28/23 14:30 10/28/23 15:00 Temperature Temperature Source Pulse Rate 73 68 70 Pulse Rate [Radial] Respiratory Rate Blood Pressure 92/56 L 113/64 124/78 Blood Pressure [Right Arm] Blood Pressure Mean [Right Arm] Blood Pressure Source [Right Arm] Blood Pressure Position [Right Arm] 02 Sat by Pulse Oximetry 100 99 99 Oxygen Delivery Method Room Air 10/28/23 15:31 10/28/23 15:54 Temperature 98 F Temperature Source Oral Pulse Rate 73 88 Pulse Rate [Radial] Respiratory Rate 18 Blood Pressure 128/70 120/78 Blood Pressure [Right Arm] Blood Pressure Mean [Right Arm] Blood Pressure Source [Right Arm] Blood Pressure Position [Right Arm] 02 Sat by Pulse Oximetry 100 Oxygen Delivery Method Room Air Lab Data Lab Results 10/28/23 12:58: WBC 6.0, RBC 4.88, Hgb 13.0, Hct 40.6, MCV 83.1, MCH 26.7 L, MCHC 32.1, RDW 15.6, Plt Count 168, MPV 11.1 H, Neut % (Auto) 60.8, Lymph % (Auto) 32.0, Braxton % (Auto) 4.9, Eos % (Auto) 1.5, Baso % (Auto) 0.7, Neut # (Auto) 3.7, Lymph # (Auto) 1.9, Braxton # (Auto) 0.3, Eos # (Auto) 0.1, Baso # (Auto) 0.0, Sodium 139, Potassium 3.6, Chloride 105, Carbon Dioxide 29, Anion Gap 8.6, BUN 11, Creatinine 0.80, Estimated Creat Clear 157, Estimated GFR 80, Est GFR ( Amer) 97, Glucose 123 H, Calcium 8.8, Total Bilirubin 0.7, AST 27, ALT 21, Alkaline Phosphatase 64, Troponin I < 0.01, Total Protein 6.7, Albu min 4.0, Globulin 2.7, Albumin/Globulin Ratio 1.5, Lipase 45 10/28/23 12:58 10/28/23 12:58 Orders (Tests/Meds): ED MEDICATIONS Discontinued Medications Generic Name Dose Route Start Last Admin Trade Name Freq PRN Reason Stop Dose Admin Aspirin 325 mg 10/28/23 13:47 10/28/23 14:02 Aspirin 325mg Tablet PO 10/28/23 13:48 325 mg ONCE ONE Administration Belladonna Alkaloids 60 ml 10/28/23 13:47 10/28/23 14:02 Belladonna Alkaloids 60 Ml Ml PO 10/28/23 13:48 60 ml ONCE ONE Administration ORDERS Category Date Time Status XR chest 2V Stat Exams 10/28/23 13:47 Completed CBC w/Auto Diff [Complete Blood Count Auto Diff] Stat Lab 10/28/23 12:58 Completed CMP [Comprehensive Metabolic Panel] Stat Lab 10/28/23 12:58 Completed Lipase Stat Lab 10/28/23 12:58 Completed Troponin I Q2H Lab 10/28/23 12:58 Completed ECG initial Besson Routine Y 10/28/23 12:55 Completed HEART Score History (anamnesis): Moderately suspicious ECG: Non-specific disturbance Age: <45 years Risk factors: No known risk factors Troponin: </= normal limit HEART Score: 2 Medical Decision Narrative: Patient with history and exam per above presenting for evaluation of chest pain Diagnoses considered include ACS, aortic dissection, pericarditis, PE, pneumothorax, pneumonia, GERD, costochondritis, referred pain. Regarding this differential diagnosis, patient has no medical risk factors to suggest ACS although it is a daily smoker, time course is not overtly consistent with peric arditis, characteristic of pain and young demographic not suggestive of aortic dissection, clinical exam not consistent with pneumothorax, no vital sign abnormality or characteristics or historical features outside of smoking history to suggest pulmonary embolism, I do maintain moderate to high index of suspicion for either GERD or perhaps pancreatitis given characteristic of pain, although patient states this is nothing like her history of GERD, she is a daily smoker, known history of GERD, and positional component of her pain due to make this diagnosis relatively more likely. ED workup and treatment included: ED MEDICATIONS Discontinued Medications Generic Name Dose Route Start Last Admin Trade Name Freq PRN Reason Stop Dose Admin Aspirin 325 mg 10/28/23 13:47 10/28/23 14:02 Aspirin 325mg Tablet PO 10/28/23 13:48 325 mg ONCE ONE Administration Belladonna Alkaloids 60 ml 10/28/23 13:47 10/28/23 14:02 Belladonna Alkaloids 60 Ml Ml PO 10/28/23 13:48 60 ml ONCE ONE Administration ORDERS Category Date Time Status XR chest 2V Stat Exams 10/28/23 13:47 Completed CBC w/Auto Diff [Complete Blood Count Auto Diff] Stat Lab 10/28/23 12:58 Completed CMP [Comprehensive Metabolic Panel] Stat Lab 10/28/23 12:58 Completed Lipase Stat Lab 10/28/23 12:58 Completed Troponin I Q2H Lab 10/28/23 12:58 Completed ECG initial Besson Routine Y 10/28/23 12:55 Completed Labs were independently interpreted by me, significant for initial troponin undetectable, no leukocytosis, lipase within normal limits. Patient's EKG was independently visualized and interpreted by me significant for normal sinus rhythm, normal axis, no acute ST changes. Imaging was independently visualized and interpreted by me, significant for right upper lobar granulomatous lesion which is reportedly stable from prior. I believe this is unlikely to be precipitant of patient's symptoms, but this incidental finding was communicated to patient and she was instructed to follow- up with primary care provider closely regarding this lesion for follow-up, as this granulomatous lesion is of indeterminant etiology at this time, may be benign but could represent something cancerous and should be monitored over time. Upon reassessment, patient reports marked improvement of symptoms. I discussed my clinical impression with her at this time, including results of labs, chest x-ray as previously mentioned. I discussed with her that while initial troponin was undetectable, in conjunction with her symptoms being ongoing for several hours, it is unlikely that she is suffering from ACS at this time, however, as I mentioned to her upon initial assessment, I would recommend we draw a second tr oponin as this lab is a low sensitivity troponin and it would be my recommendation that we proceed with a second troponin to evaluate for any significant change. Patient and family member at bedside inquire at this time as to if any blood work were actually drawn. Patient states she does not remem benji any blood getting drawn from her IV. I discussed with her that perhaps she does not recall getting blood drawn from her IV as nursing staff may have drawn tubes as soon as the IV were placed. I confirmed with her that I would double check that nursing did indeed draw these labs, I am unsure of who else this blood work may have possibly come from but I did indeed confirm with nursing staff that the tubes that were sent were indeed from her. After a extensive discussion of risks and patient's risk of tolerance regarding second troponin draw, patient elects to be discharged at this time as she understands the risks, has capacity to do so, and reports marked improvement of symptoms. I believe, although this is against my recommendation, that this is a reasonable choice and she is able to express a logical explanation for doing so and her understanding of the risks. I then discussed my clinical impression at this time which is that she may be suffering from GERD, I counseled her extensively as to risk factors for GERD, ways she should take her PPI for maximum efficacy, and other ways to alleviate symptoms secondary to GERD. The patient was advised that persistent or worsening symptoms require further evaluation. I confirmed the patient's understanding of this discussion. She was discharged from the emergency department at this time. Critical Care Critical Care Time Critical Care Time: No
[2023-10-28 13:55] LABS: Chloride 105 mmol/L (98-107)
[2023-10-28 13:56] LABS: Potassium 3.6 mmoL/L (3.5-5.1); Sodium 139 mmol/L (136-145)
[2023-10-28 13:58] LABS: Alanine Aminotransferase 21 U/L (12-78); Alkaline Phosphatase 64 U/L (38-126); Anion Gap 8.6 mEq/L (5-15); Aspartate Amino Transferase 27 U/L (14-36); Bilirubin,Total 0.7 mg/dl (0.2-1.3); Blood Urea Nitrogen 11 mg/dl (7-17); Carbon Dioxide 29 mmol/L (22.0-30.0); Creatinine Clearance Estimated 157 mL/min (50-200); Estimated Glomerular Filt Rate 80 ml/min (>60); GFR (African American) 97 ML/MIN (>60); Lipase 45 U/L (23-300)
[2023-10-28 13:59] LABS: Albumin/Globulin Ratio 1.5 (1.1-1.8); Calcium 8.8 mg/dl (8.4-10.2); Globulin 2.7 g/dL (1.3-3.2); Glucose 123 mg/dl (74-100); Total Protein,Serum 6.7 g/dl (6.3-8.2)
[2023-10-28] MEDS: ASPIRIN 325MG TABLET 325 MG PO (14:02)
[2023-10-28] MEDS: BELLADONNA ALKALOIDS 60 ML ML PO (14:02)
[2023-10-28 14:15] LABS: Basophils % 0.7 % (0.1-2.0); Eosinophils # 0.1 K/mm3 (0.0-0.4); Eosinophils % 1.5 % (0.1-12.0); Hematocrit 40.6 % (37.0-47.0); Lymphocytes # 1.9 K/mm3 (0.7-4.5); Mean Corpuscular HGB Conc 32.1 g/dL (31.8-35.4); Mean Corpuscular Hemoglobin 26.7 pg (27.0-31.2); Mean Corpuscular Volume 83.1 fl (81-99); Mean Platelet Volume 11.1 fl (7.4-10.4); Monocytes # 0.3 K/mm3 (0.1-1.0); Monocytes % 4.9 % (1.7-9.3); Neutrophils # 3.7 K/mm3 (1.8-7.8); Neutrophils % 60.8 % (37.0-80.0); Platelet Count 168 K/mm3 (142-424); Red Blood Count 4.88 M/mm3 (4.20-5.40); Red Cell Distribution Width 15.6 % (11.5-17.5)
[2023-10-28 14:17] LABS: Troponin I < 0.01 ng/ml (0.00-0.034)
== END 2023-10-28 15:55 | disposition home or self-care (01) ==
PROVIDERS: Emergency Provider Emergency Medicine; PCP Physician Assistant
DX: R07.9 Chest pain, unspecified (principal); J44.9 Chronic obstructive pulmonary disease, unspecified; M54.9 Dorsalgia, unspecified; F17.210 Nicotine dependence, cigarettes, uncomplicated; J84.10 Pulmonary fibrosis, unspecified
CPT/HCPCS: 71046; 80053; 83690; 84484; 85025; 93005; 99285

== ENCOUNTER 2023-11-01 13:13 | Outpatient (CLI) | payer BC, SELFPAY ==
[2023-11-01 22:13] LABS: Amphetamine/Metha Screen,Urine Positive ng/ml (<1000); Barbiturates Screen,Urine Positive ng/ml (<200); Benzodiazepines Screen,Urine Negative ng/ml (<200); Cannabinoid Screen,Urine Negative ng/ml (<50); Cocaine Screen,Urine Negative ng/ml (<300); Methadone Screen,Urine Negative ng/ml (<300); Opiate Screen,Urine Negative ng/ml (<300); Phencyclidine Screen,Urine Negative ng/ml (<25)
[2023-11-06 19:28] LABS: Barbiturates Positive (.)
== END 2023-11-01 23:59 ==
LOC: LAB.DROPOF 13:13
PROVIDERS: PCP Physician Assistant; Visit Provider Physician Assistant
DX: Z79.899 Other long term (current) drug therapy (principal); F90.9 Attention-deficit hyperactivity disorder, unspecified type
CPT/HCPCS: 80307; 80345